=== PATIENT | male | born 1995 | race Caucasian/White ===

== ENCOUNTER 2024-02-19 11:47 | Emergency (ER) | payer OTHER ==
[~2024-02-19] VITALS: Ht 180.3 cm; Wt 121.4 kg
[2024-02-19] MEDS ORDERED: ULTRAM 50MG50 MG PO (13:50)
[2024-02-19 13:59] VITALS: PULSE 79; RESP 16; TEMP 98.4; O2SAT 98
== END 2024-02-19 14:05 | disposition home or self-care (01) ==
LOC: FSED 11:58
DX: S52.592A Other fractures of lower end of left radius, initial encounter for closed fracture (principal); M25.432 Effusion, left wrist; S93.692A Other sprain of left foot, initial encounter; W01.0XXA Fall on same level from slipping, tripping and stumbling without subsequent striking against object, initial encounter; Y93.01 Activity, walking, marching and hiking; Y99.0 Civilian activity done for income or pay; G62.9 Polyneuropathy, unspecified
CPT/HCPCS: 99284